=== PATIENT | female | born 2000 | race Two or more races ===

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

== ENCOUNTER 2020-03-22 18:30 | Inpatient (IN) | payer MEDICAID ==
[~2020-03-22] VITALS: Ht 154.9 cm; Wt 55.1 kg
[2020-03-22] MEDS: POTASSIUM CHLORIDE 40 MEQ in D5W/LACTATED RINGERS 1,000 ML IV SCH (03:00)
[2020-03-22] MEDS ORDERED: SODIUM CHLORIDE 0.9% 500 ML IV ONE (19:00)
[2020-03-22 19:29] LABS: Basophils # (auto) 0 10 ^3/uL (0-0.2); Basophils % (auto) 0.2 % (0.0-2.0); Eosinophils # (auto) 0 10 ^3/uL (0-0.8); Eosinophils % (auto) 0.4 % (0.0-7.0); Hematocrit 41.3 % (36.0-46.0); Hemoglobin 13.5 g/dL (12.2-16.2); Lymphocytes # (auto) 5.2 10 ^3/uL (0.4-5.4); Lymphocytes % (auto) 39.3 % (10.0-50.0); Mean Corpuscular Hemoglobin 29.3 pg (28.0-32.0); Mean Corpuscular Hgb Conc. 32.7 g/dL (32.0-36.0); Mean Corpuscular Volume 89.5 fL (80.0-100.0); Monocytes # (auto) 0.6 10 ^3/uL (0-1.3); Monocytes % (auto) 4.6 % (0.0-12.0); Neutrophils # (auto) 7.3 10 ^3/uL (1.6-8.6); Neutrophils % (auto) 55.5 % (37.0-80.0); Nucleated Red Blood Cells % 0.1 %; Platelet Count (auto) 341 10^3/uL (140-450); Red Blood Cells 4.61 10^6/uL (4.0-5.20); Red Cell Distribution Width 12.9 % (11.8-14.3); White Blood Cell 13.2 10^3/uL (4.4-10.8)
[2020-03-22 19:41] LABS: Albumin 4.2 g/dL (3.4-5.0); Calcium 8.8 mg/dL (8.5-10.1)
[2020-03-22 19:45] LABS: BUN/Creatinine Ratio 9.8; Bilirubin, Total 1.3 mg/dL (0.2-1.0); Total Protein 7.6 g/dL (6.4-8.2)
[2020-03-22 19:48] LABS: Potassium 2.9 mmol/L (3.5-5.1)
[2020-03-22 19:59] LABS: Urine Bacteria NONE SEEN /hpf (None Seen); Urine Blood Negative /uL (Negative); Urine Mucus FEW (None Seen); Urine Specific Gravity 1.021 (1.001-1.035); Urine WBC 1 /hpf (0 - 5)
[2020-03-22] MEDS ORDERED: MORPHINE SULFATE 4 MG/ML SYR/VIAL IV ONE (20:00)
[2020-03-22] MEDS ORDERED: ONDANSETRON HCL 4 MG/2 ML VIAL IV ONE (20:00)
[2020-03-22] MEDS ORDERED: POTASSIUM CHL 20MEQ/100ML 100 ML IV ONE (20:00)
[2020-03-22] MEDS ORDERED: SODIUM CHLORIDE 0.9% 1,000 ML IV ONE (20:00)
[2020-03-22 20:13] LABS: Alcohol, Urine < 3.0 mg/dL (0-5); Amphetamine Screen, Urine NEGATIVE (NEGATIVE); Barbiturate Scree,Urine NEGATIVE (NEGATIVE); Benzodiazephine Screen, Urine NEGATIVE (NEGATIVE); Cannabinoid Screen, Urine POSITIVE (NEGATIVE); Cocaine Screen, Urine NEGATIVE (NEGATIVE); Opiate Scree,Urine NEGATIVE (NEGATIVE); Phencyclidine Screen, Urine NEGATIVE (NEGATIVE)
[2020-03-22] MEDS ORDERED: SODIUM CHLORIDE 0.9% 1,000 ML IV SCH (20:52)
[2020-03-22] MEDS ORDERED: LACTATED RINGER S IV ONE (21:00)
[2020-03-22] MEDS ORDERED: LORazepam 0.5 MG TAB PO PRN (21:00)
[2020-03-22] MEDS ORDERED: PANTOPRAZOLE 40 MG/10 ML VIAL INJ IV ONE (21:00)
[2020-03-22] MEDS ORDERED: ALUM & MAG HYDROX-SIMETH LIQ(MAALOX) 30 ML PO PRN (21:00)
[2020-03-22] MEDS ORDERED: DOCUSATE SOD 100 MG CAP PO PRN (21:00)
[2020-03-22] MEDS ORDERED: NITROGLYCERIN 0.4 MG SL TAB SL PRN (21:00)
[2020-03-22] MEDS ORDERED: MORPHINE SULF INJ 2 MG/ML SYRINGE 1ML IV PRN (21:00)
[2020-03-22] MEDS ORDERED: metroNIDAZOLE 500MG/100ML 100 ML IV ONE (21:15)
[2020-03-22] MEDS ORDERED: cefTRIAXone 1GM/50ML D5W 50 ML IV ONE (21:15)
[2020-03-22] MEDS ORDERED: IOHEXOL 300 MG/ML 100ML BOTTLE IJ ONE (21:42)
[2020-03-22] MEDS ORDERED: OMNIPAQUE ORAL SOLN 500ml 12mg/ml PO ONE (21:43)
[2020-03-22 21:46] VITALS: BP 104/64
--- NOTE | 2020-03-22 21:46 | NUR ---
Telemetry admit from [facility] admitted to Telemetry unit. Patient oriented to GUILLERMO ESPINOSA primary RN, unit, room, bed, and unit policies regarding patient care and visiting hours. Patient now on continuous telemetry monitoring, tele box # [id number] and telemetry reading on arrival to unit is sinus rhythm. Patient weighed by bedscale and encouraged to call as needed. All questions and concerns addressed, patient verbalized understanding. Bed is locked in lowest position, side rails x 2 are up, and call light is within reach.
[2020-03-22 22:42] VITALS: BP 104/64
[2020-03-22] MEDS: METOCLOPRAMIDE HCL 5MG/ml INJ 2ml VIAL IV PRN (22:49)
[2020-03-22] MEDS: MORPHINE SULFATE 4 MG/ML SYR/VIAL IV PRN (22:49)
[2020-03-23] MEDS: HYDROcodone-ACET 5/325MG TAB PO PRN ×2 (01:25→09:01)
[2020-03-23] MEDS: METOCLOPRAMIDE HCL 5MG/ml INJ 2ml VIAL IV PRN ×2 (04:45→06:04)
[2020-03-23] MEDS: MORPHINE SULFATE 4 MG/ML SYR/VIAL IV PRN ×2 (04:45→06:04)
[2020-03-23] MEDS: metroNIDAZOLE 500MG/100ML 100 ML IV SCH ×2 (05:27→14:00)
[2020-03-23 05:33] LABS: Basophils # (auto) 0 10 ^3/uL (0-0.2); Basophils % (auto) 0.2 % (0.0-2.0); Eosinophils # (auto) 0.1 10 ^3/uL (0-0.8); Eosinophils % (auto) 0.6 % (0.0-7.0); Hematocrit 34.5 % (36.0-46.0); Lymphocytes # (auto) 4.1 10 ^3/uL (0.4-5.4); Lymphocytes % (auto) 43.5 % (10.0-50.0); Mean Corpuscular Hemoglobin 30.8 pg (28.0-32.0); Mean Corpuscular Hgb Conc. 34.7 g/dL (32.0-36.0); Mean Corpuscular Volume 88.6 fL (80.0-100.0); Monocytes # (auto) 0.5 10 ^3/uL (0-1.3); Monocytes % (auto) 4.8 % (0.0-12.0); Neutrophils # (auto) 4.8 10 ^3/uL (1.6-8.6); Neutrophils % (auto) 50.9 % (37.0-80.0); Nucleated Red Blood Cells % 0.1 %; Platelet Count (auto) 243 10^3/uL (140-450); Red Cell Distribution Width 12.5 % (11.8-14.3); White Blood Cell 9.4 10^3/uL (4.4-10.8)
[2020-03-23 05:44] LABS: INR 1.06 (0.9-1.15); Partial Thromboplastin Time 26.6 sec (23.64-32.05)
[2020-03-23 05:46] LABS: Albumin 3.5 g/dL (3.4-5.0); Calcium 7.9 mg/dL (8.5-10.1); Potassium 3.5 mmol/L (3.5-5.1)
[2020-03-23 05:49] LABS: BUN/Creatinine Ratio 8.9; Bilirubin, Total 1.1 mg/dL (0.2-1.0); Total Protein 6.2 g/dL (6.4-8.2)
--- NOTE | 2020-03-23 05:53 | NUR ---
Spoke With Hospitalist RE: Nausea Notified Dr. Powers that patient has already been medicated for nausea (see eMAR) and patient is still complaining of nausea. Dr. Powers also notified that patient is still complaining of abdominal pain (pain scale 6/10) and has also already been medicated for pain (see eMAR). Orders received for Zofran 4mg IV Q4HRS PRN for nausea. Orders read back and verified. Will carry out order as received.
[2020-03-23 05:54] VITALS: BP 112/76
[2020-03-23] MEDS ORDERED: ONDANSETRON HCL 4 MG/2 ML VIAL IV PRN (06:00)
[2020-03-23] MEDS: POTASSIUM CHLORIDE 40 MEQ in D5W/LACTATED RINGERS 1,000 ML IV SCH (07:12)
--- NOTE | 2020-03-23 07:35 | NUR ---
Opening Note Received report from night manager RN. Patient is resting in bed with eyes closed, no signs or symptoms of distress noted at this time. Patient is on room air, respirations even and unlabored. Bed in low and locked position, call light within reach. Will continue to monitor Q1 hour and PRN.
[2020-03-23 08:00] VITALS: BP 90/52
--- NOTE | 2020-03-23 08:30 | NUR ---
Nausea Patient complains of nausea and is requesting medications. Will medicate per orders. Will continue to monitor Q1 hour and PRN.
[2020-03-23] MEDS ORDERED: cefTRIAXone 1GM/50ML D5W 50 ML IV SCH (09:00)
--- NOTE | 2020-03-23 09:00 | NUR ---
Pain Patient complains of abdominal pain 5/10 and is requesting pain medication. Will medicate per orders. Will continue to monitor Q1 hour and PRN.
--- NOTE | 2020-03-23 09:30 | NUR ---
Pain reassessment Patient resting in bed with eyes closed, no signs or symptoms of distress noted at this time. Will continue to monitor Q1 hour and PRN.
[2020-03-23] MEDS ORDERED: ENOXAPARIN SOD 40 MG/0.4 ML SYRINGE SC SCH (10:00)
[2020-03-23] MEDS ORDERED: PANTOPRAZOLE 40 MG/10 ML VIAL INJ IV SCH (10:00)
[2020-03-23 12:00] VITALS: BP_SYST 105; BP_SYST 110; BP_DIAS 62; BP_DIAS 66
--- NOTE | 2020-03-23 13:38 | NUR ---
Dr. Atkinson at bedside Discussing plan of care with patient and this RN. Patient to discharge later today. Will continue to monitor Q1 hour and PRN.
[2020-03-23] MEDS ORDERED: MULT-1018 PO (14:36)
[2020-03-23] MEDS ORDERED: DROS1TAB5 PO (14:40)
[2020-03-23] MEDS ORDERED: MORPHINE SULF INJ 2 MG/ML SYRINGE 1ML IV PRN (14:45)
[2020-03-23 15:41] VITALS: BP 90/52
--- NOTE | 2020-03-23 16:40 | NUR ---
Prescriptions called in to patients pharmacy Called in by this RN. Argenis Morillo . Spoke to
--- NOTE | 2020-03-23 16:51 | NUR ---
Discharge Discharge instructions given as ordered. Encourage to follow up with PMD as instructed. All questions and concerns addressed. Patient verbalized understanding. Medication reconciliation form completed and copy given to patient. IV removed with catheter intact, pressure dressing applied. Telemetry unit returned to ICU. Patient ambulated to private vehicle with all personal belongings. No signs or symptoms of distress noted at this time.
[2020-03-23] MEDS ORDERED: SUCRALFATE 1 GM/10 ML ORAL SUSP PO SCH (17:00)
== END 2020-03-23 16:40 | disposition home or self-care (01) | DRG 241 ==
LOC: ER 18:30 → TELE 18:31 → TELE-WESTW 21:46
PROVIDERS: ADMIT Hospitalist; ATTEND Internal Medicine
DX: K29.70 Gastritis, unspecified, without bleeding (principal); K50.90 Crohn's disease, unspecified, without complications; D72.829 Elevated white blood cell count, unspecified; E86.0 Dehydration; E87.6 Hypokalemia; F12.90 Cannabis use, unspecified, uncomplicated; K21.9 Gastro-esophageal reflux disease without esophagitis
CPT/HCPCS: 36415; 74177; 80053; 80307; 81001; 81025; 83735; 84100; 85025; 85610; 85730; 87040; 93005; 96361; 96365; 96375; C9113; G0378; J0696; J2405; J3480; J3490